=== PATIENT | female | born 1955 | race Caucasian/White ===

== ENCOUNTER → 2016-09-29 | Outpatient (CLI) | payer OTHER ==
[~2016-09-29] MED LIST: ANTI-DEPRESSANT; ASPIRIN ENTERI325 M1 PO; ATIVAN; ATIVAN PO; CARDIZEM CD PO; CELEXA PO; CLONIDINE PO; COLACE PO; COUMADIN PO; CRESTOR10 MG PO; CYMBALTA PO; DEPAKOTE PO; DESYREL50 M1 PO; DIAZEPAM PO; DILAUDID4 MG PO; DURAGESIC; EFFEXOR XR PO; FIORICET 50-321 EACH PO; FLEXERIL; HYDROCODON-ACE1 EAC5 PO; HYDROCODON-ACE1 EAC9 PO; KCL PO; KLONOPIN1 MG PO; LASIX PO; LISINOPRIL PO; LORAZEPAM1 MG PO; LYRICA PO; METHADONE HCL10 MG PO; METHADONE PO; MILK OF MAGNESIA PO; NEURONTIN300 MG PO; NORCO 10-325 TA1 TAB PO; ORUDIS75 M1 PO; PAROXETINE HCL40 M1 PO; PAXIL PO; PEPCID AC20 MG PO; PERCOCET10 PO; PERCOCET5/325; PERCODAN TABLET1 TA1 PO; PHENERGAN PO; PHENERGAN SUPP25 MG PR; PHENERGAN25 M1 PO; PHENERGAN25 MG PO; PLAVIX PO; REGLAN PO; REMERON PO; ROBAXIN PO; ROBAXIN500 MG PO; SEROQUEL PO; SOMA PO; TOPAMAX PO; TOPAMAX50 MG PO; TORADOL PO; TRAZODONE PO; TUSSIONEX PENN473 ML; TYLENOL #3 PO; VALIUM10 MG PO; VOLTAREN50 MG PO; ZANAFLEX PO; ZANAFLEX4 M1 PO; ZELNORM PO
--- NOTE | ~2016-09-29 | MY11 ---
[facility] A Service of [facility] RADIOLOGY TEXT RESULTS PATIENT: SUN TERRY LOCATION: [facility] : 55 UNIT #: [id number] AGE: [address]: Rossana Boudreaux MD SEX: F ORDER DR: [id number] [address] [address] [id number] O MR#: [id number] Acc #: [id number] NAME: SUN TERRY. : 1955 SEX: F STUDY DATE/TIME: 09/29/2016 11:10 UNIT: [facility] ROOM: STUDY DESCRIPTION: MY Mammogram Screening Dig Vinod Attending Physician: Rossana Boudreaux M.D. Referring Physician: Rossana Boudreaux M.D. Ordering Physician: Rossana Boudreaux M.D. Primary Care Physician: Rossana Boudreaux M.D. MEDICAL IMAGING REPORT This report is preliminary unless electronic signature is present. EXAM Digital screening mammogram 09/29/2016 [facility] HISTORY 61-year-old woman positive family history, sister in her late 40s. Annual screen. COMPARISON None available. New baseline. FINDINGS Digital imaging of each breast was completed utilizing a two-view examination of each breast in craniocaudal and mediolateral-oblique projections. Review and interpretation of digital mammograms include a second review in conjunction with FDA-approved CAD device. There is a normal parenchymal presentation bilaterally consistent with the patient's age. There are no breast masses imaged and no parenchymal asymmetry is visualized. There are no suspicious microcalcifications and I see no focal architectural disturbance. IMPRESSION Negative screening digital mammogram. One-year followup recommended. Patients over the age of 40 are entered into a reminder system with target due date for the next mammogram. A result letter will also be sent to the patient. BIRADS: 1 Negative Dictated by... [facility] A Service of [facility] RADIOLOGY TEXT RESULTS PATIENT: SUN TERRY LOCATION: [facility] : 55 UNIT #: [id number] AGE: [address]: Rossana Boudreaux MD SEX: F ORDER DR: Marshal Leblanc M.D. THIS IS AN ELECTRONICALLY VERIFIED REPORT Marshal Leblanc M.D. at 09/30/2016 8:11 AM JBB/erlinda TD: 09/29/2016 20:44 JOB #: [id number] MEDICAL IMAGING REPORT Page 1 of 1
[2016-09-29 11:04] LABS: BASOPHIL# 0.1 X10e3 (0-0.3); EOSINOPHIL# 0.2 X10e3 (0-0.7); EOSINOPHIL% 1.9 % (0.0-7.0); HEMATOCRIT 46.9 % (35.0-45.0); HEMOGLOBIN 15.8 gm/dL (12.0-16.0); LYMPHOCYTE# 3.1 X10e3 (1.0-3.5); LYMPHOCYTE% 36.6 % (17.0-45.0); MEAN CELL VOLUME 98.8 FL (83-96); MEAN CORPUSCULAR HEMOGLOBIN 33.4 PG (28-34); MEAN CORPUSCULAR HGB CONC 33.8 g/dL (30-36); MEAN PLATELET VOLUME 7.7 FL (6.5-11.5); MONOCYTE# 0.7 X10e3 (0-1.0); MONOCYTE% 8.5 % (3.0-12.0); NEUTROPHIL# 4.4 X10e3 (1.5-7.1); PLATELET COUNT 236 X10e3 (140-420); RED BLOOD COUNT 4.75 X10e (3.90-5.30); RED CELL DISTRIBUTION WIDTH 13.8 % (11.0-15.5); WHITE BLOOD COUNT 8.5 X10e3 (4.0-10.5)
[2016-09-29 11:19] LABS: DIFF IND NO
[2016-09-29 13:31] LABS: ALBUMIN SERUM 3.8 g/dL (3.5-5.0); BILIRUBIN,TOTAL 0.4 mg/dL (0.2-2.0); CREATININE SERUM 0.8 mg/dL (0.6-1.4); GLOM FILT RATE Estimated 79.6 mL/min (>60); POTASSIUM 4.3 mmol/L (3.5-5.1); PROTEIN TOTAL SERUM 7.3 g/dL (6.0-8.3)
[2016-09-29 15:04] LABS: FOLATE (FOLIC ACID) 6.4 ng/mL (>5.8)
== END | disposition home or self-care (01) ==
LOC: SMAM 09-15 10:45
PROVIDERS: Family Medicine
DX: Z12.31 Encounter for screening mammogram for malignant neoplasm of breast (principal); Z13.220 Encounter for screening for lipoid disorders; Z13.29 Encounter for screening for other suspected endocrine disorder; Z13.6 Encounter for screening for cardiovascular disorders; G43.009 Migraine without aura, not intractable, without status migrainosus; J44.9 Chronic obstructive pulmonary disease, unspecified; F41.1 Generalized anxiety disorder; F17.200 Nicotine dependence, unspecified, uncomplicated; Z80.3 Family history of malignant neoplasm of breast
CPT/HCPCS: 36415; 80053; 80061; 82607; 82746; 84443; 85025; G0202